=== PATIENT | female | born 1970 | race Caucasian/White ===

== ENCOUNTER → 2016-08-25 | Day surgery (SDC) | payer OTHER ==
[~2016-08-25] MED LIST: LEVOXYL125 MCG PO; MOTION SICKNESS25 M4 PO; OMEPRAZOLE40 M1 PO; TYLENOL EXTRA500 M1 PO; ZOFRAN ODT4 MG PO
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
== END | disposition home or self-care (01) ==
LOC: CCSC 10:31
DX: M54.2 Cervicalgia (principal); Z98.1 Arthrodesis status
CPT/HCPCS: J1040; J2250

== ENCOUNTER → 2017-01-12 | Day surgery (SDC) | payer OTHER ==
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
== END | disposition home or self-care (01) ==
LOC: CCSC 08:30
DX: M47.812 Spondylosis without myelopathy or radiculopathy, cervical region (principal); M53.82 Other specified dorsopathies, cervical region; Z98.1 Arthrodesis status; Z88.5 Allergy status to narcotic agent; Z88.8 Allergy status to other drugs, medicaments and biological substances; Z79.899 Other long term (current) drug therapy
CPT/HCPCS: J1040; J2250